=== PATIENT | female | born 1945 | race Caucasian/White ===

== ENCOUNTER 2018-06-25 16:08 | Inpatient (IN) | payer MEDICARE, OTHER ==
[~2018-06-25] VITALS: Ht 162.6 cm; Wt 61.4 kg
[~2018-06-25 16:08] MED LIST: AML5T GT; ASPI81CH43 PO; ATOR20TA PO; BIOF500T11 PO; CALC-437 OR; DYA375C PO; GLUC750T29 PO; IRONTAB35 OR; METO25TA4 PO; MULTLIQ36 OR; OMEG300C7 OR
[2018-06-25 18:05] LABS: Basophils # (auto) 0 uL; Basophils % (auto) 0.5 % (0.0-2.0); Eosinophils # (auto) 0 uL; Eosinophils % (auto) 0.7 % (0.0-7.0); Hematocrit 39.1 % (36.0-46.0); Hemoglobin 13.5 g/dL (12.2-16.2); Lymphocytes # (auto) 1.1 uL; Lymphocytes % (auto) 21.9 % (10.0-50.0); Mean Corpuscular Hemoglobin 32.2 pg (28.0-32.0); Mean Corpuscular Hgb Conc. 34.7 g/dL (32.0-36.0); Mean Corpuscular Volume 92.8 fL (80.0-100.0); Monocytes # (auto) 0.7 uL; Monocytes % (auto) 14.4 % (0.0-12.0); Neutrophils # (auto) 3.1 uL; Neutrophils % (auto) 62.5 % (37.0-80.0); Platelet Count (auto) 285 10^3/uL (140-450); Red Blood Cells 4.21 10^6/uL (4.0-5.20); Red Cell Distribution Width 13.3 % (11.8-14.3)
[2018-06-25 18:19] LABS: INR 0.94 (0.9-1.15); Partial Thromboplastin Time 28.2 sec (23.78-33.04); Prothrombin Time 10.1 sec (9.27-12.13)
[2018-06-25 18:23] LABS: Alanine Aminotransferase 29 U/L (13-56); Albumin 3.9 g/dL (3.4-5.0); Anion Gap 12 (5-15); Aspartate Aminotransferase 14 U/L (15-37); BUN/Creatinine Ratio 13.9; Blood Urea Nitrogen 11 mg/dL (7-18); Calcium 8.3 mg/dL (8.5-10.1); Carbon Dioxide 24 mmol/L (21-32); Chloride 99 mmol/L (98-107); GFR African American 91 mL/min; GFR Non-African American 76 mL/min; Glucose 83 mg/dL (74-106); Magnesium 1.9 mg/dL (1.6-2.6); Potassium 3.5 mmol/L (3.5-5.1); Sodium 135 mmol/L (136-145)
[2018-06-25 18:28] LABS: Alkaline Phosphatase 69 U/L (45-117); Bilirubin, Total 0.4 mg/dL (0.2-1.0); Total Protein 7.8 g/dL (6.4-8.2)
[2018-06-25] MEDS ORDERED: NITROGLYCERIN 0.4 MG SL TAB SL PRN (20:45)
[2018-06-25] MEDS ORDERED: ONDANSETRON HCL 4 MG/2 ML VIAL IV PRN (20:45)
[2018-06-25] MEDS ORDERED: ACETAMINOPHEN 325 MG TAB PO PRN (20:45)
[2018-06-25] MEDS ORDERED: HYDROcodone-ACET 5/325MG TAB PO PRN (20:45)
[2018-06-25] MEDS ORDERED: MORPHINE SULFATE 4 MG/ML SYR/VIAL IV PRN (20:45)
[2018-06-25] MEDS ORDERED: APIXABAN 5 MG TAB PO SCH (22:00)
[2018-06-25] MEDS ORDERED: PATIENTS OWN MEDICATION (eliquis 5 MG) PO SCH (22:00)
[2018-06-25] MEDS: APIXABAN 5 MG TAB PO SCH (22:10)
[2018-06-25] MEDS: FAMOTIDINE 20 MG TAB PO SCH (22:10)
[2018-06-26] MEDS: TEMAZEPAM 15 MG CAP PO PRN ×2 (01:47→21:44)
[2018-06-26 03:00] VITALS: BP 130/76
[2018-06-26 05:00] VITALS: BP 145/72
[2018-06-26 08:01] LABS: Basophils # (auto) 0 uL; Basophils % (auto) 0.7 % (0.0-2.0); Eosinophils # (auto) 0.1 uL; Eosinophils % (auto) 1.1 % (0.0-7.0); Hematocrit 38.2 % (36.0-46.0); Lymphocytes # (auto) 1.2 uL; Mean Corpuscular Hemoglobin 31.3 pg (28.0-32.0); Mean Corpuscular Hgb Conc. 33.9 g/dL (32.0-36.0); Mean Corpuscular Volume 92.2 fL (80.0-100.0); Monocytes # (auto) 0.7 uL; Neutrophils # (auto) 2.8 uL; Neutrophils % (auto) 59.2 % (37.0-80.0); Platelet Count (auto) 273 10^3/uL (140-450); Red Blood Cells 4.15 10^6/uL (4.0-5.20); Red Cell Distribution Width 13.4 % (11.8-14.3); White Blood Cell 4.7 10^3/uL (4.4-10.8)
[2018-06-26 08:22] VITALS: BP 137/86
[2018-06-26 08:27] LABS: Albumin 3.5 g/dL (3.4-5.0); Calcium 8.6 mg/dL (8.5-10.1); Potassium 3.4 mmol/L (3.5-5.1)
[2018-06-26 08:29] LABS: BUN/Creatinine Ratio 14.1; Bilirubin, Total 0.5 mg/dL (0.2-1.0); Total Protein 7.1 g/dL (6.4-8.2)
[2018-06-26] MEDS ORDERED: ASPirin 81 mg TAB PO SCH (10:00)
[2018-06-26] MEDS ORDERED: ENOXAPARIN SOD 40 MG/0.4 ML SYRINGE SC SCH (10:00)
[2018-06-26] MEDS ORDERED: ASPirin-EC 81 mg tab PO SCH (10:00)
[2018-06-26] MEDS: ATORVASTATIN 20 MG TAB PO SCH (10:30)
[2018-06-26] MEDS: TRIAMTERENE/HCTZ 37.5/25 MG CAP/TAB PO SCH (10:30)
[2018-06-26] MEDS: amLODIPine BESYLATE 5 MG TAB PO SCH (10:30)
[2018-06-26] MEDS: FAMOTIDINE 20 MG TAB PO SCH ×2 (10:30→21:45)
[2018-06-26] MEDS: APIXABAN 5 MG TAB PO SCH ×2 (10:30→21:45)
[2018-06-26] MEDS: METOPROLOL SUCCINATE XL 50 MG TAB PO SCH (10:30)
[2018-06-26 12:12] VITALS: BP 124/61
[2018-06-26] MEDS ORDERED: POTASSIUM EFFERVESENT TAB 25 MEQ PO ONE (13:15)
[2018-06-26 16:40] VITALS: BP 118/69
[2018-06-26] MEDS: buPROPion HCL 100 MG TAB PO SCH (19:28)
[2018-06-26 21:49] VITALS: BP 106/73
[2018-06-27] VITALS (7 sets, daily range): BP systolic 108–127; BP diastolic 51–65
[2018-06-27] MEDS: buPROPion HCL 100 MG TAB PO SCH ×2 (06:05→18:50)
[2018-06-27 06:32] LABS: Basophils # (auto) 0 uL; Basophils % (auto) 0.8 % (0.0-2.0); Eosinophils # (auto) 0.1 uL; Eosinophils % (auto) 1.3 % (0.0-7.0); Hematocrit 37.2 % (36.0-46.0); Hemoglobin 12.8 g/dL (12.2-16.2); Lymphocytes # (auto) 1.2 uL; Lymphocytes % (auto) 27.4 % (10.0-50.0); Mean Corpuscular Hgb Conc. 34.4 g/dL (32.0-36.0); Mean Corpuscular Volume 92.8 fL (80.0-100.0); Monocytes # (auto) 0.8 uL; Monocytes % (auto) 17.9 % (0.0-12.0); Neutrophils # (auto) 2.3 uL; Neutrophils % (auto) 52.6 % (37.0-80.0); Nucleated Red Blood Cells % 0.1 %; Platelet Count (auto) 263 10^3/uL (140-450); Red Blood Cells 4.01 10^6/uL (4.0-5.20); Red Cell Distribution Width 13.2 % (11.8-14.3); White Blood Cell 4.4 10^3/uL (4.4-10.8)
[2018-06-27 06:47] LABS: BUN/Creatinine Ratio 15.1; Calcium 8.6 mg/dL (8.5-10.1); Potassium 3.7 mmol/L (3.5-5.1)
[2018-06-27] MEDS: TRIAMTERENE/HCTZ 37.5/25 MG CAP/TAB PO SCH (09:32)
[2018-06-27] MEDS: APIXABAN 5 MG TAB PO SCH ×2 (09:32→21:35)
[2018-06-27] MEDS: FAMOTIDINE 20 MG TAB PO SCH ×2 (09:33→21:35)
[2018-06-27] MEDS: amLODIPine BESYLATE 5 MG TAB PO SCH (09:33)
[2018-06-27] MEDS: ATORVASTATIN 20 MG TAB PO SCH ×2 (09:33→10:00)
[2018-06-27] MEDS: METOPROLOL SUCCINATE XL 50 MG TAB PO SCH (09:35)
[2018-06-27] MEDS: TEMAZEPAM 15 MG CAP PO PRN (21:35)
[2018-06-28 05:00] VITALS: BP 112/53
[2018-06-28 06:25] LABS: Cholesterol 211 mg/dL (< 200); HDL Cholesterol 55 mg/dL (40-59); LDL Cholesterol 128 mg/dL (< 100); Triglycerides 145 mg/dL (< 150)
[2018-06-28] MEDS: buPROPion HCL 100 MG TAB PO SCH (07:03)
[2018-06-28 08:00] VITALS: BP 110/61
[2018-06-28 09:00] VITALS: BP 110/61
[2018-06-28] MEDS: amLODIPine BESYLATE 5 MG TAB PO SCH (09:17)
[2018-06-28] MEDS: APIXABAN 5 MG TAB PO SCH (09:17)
[2018-06-28] MEDS: METOPROLOL SUCCINATE XL 50 MG TAB PO SCH ×2 (09:18→09:23)
[2018-06-28] MEDS: TRIAMTERENE/HCTZ 37.5/25 MG CAP/TAB PO SCH (09:18)
[2018-06-28] MEDS: FAMOTIDINE 20 MG TAB PO SCH (09:19)
[2018-06-28] MEDS: ATORVASTATIN 20 MG TAB PO SCH (09:19)
[2018-06-28 10:42] VITALS: BP 110/61
== END 2018-06-28 11:38 | disposition home or self-care (01) | DRG 92 ==
LOC: ER 16:11 → TELE 16:12 → TELE-CENTR 06-26 02:44
PROVIDERS: ADMIT Nurse Practitioner; ATTEND Family Medicine
DX: R27.0 Ataxia, unspecified (principal); G72.0 Drug-induced myopathy; H53.2 Diplopia; E78.00 Pure hypercholesterolemia, unspecified; E78.5 Hyperlipidemia, unspecified; F17.200 Nicotine dependence, unspecified, uncomplicated; T46.6X5A Adverse effect of antihyperlipidemic and antiarteriosclerotic drugs, initial encounter; I48.2 Chronic atrial fibrillation; Z79.01 Long term (current) use of anticoagulants; I10 Essential (primary) hypertension; Z79.899 Other long term (current) drug therapy; Z82.49 Family history of ischemic heart disease and other diseases of the circulatory system; Z85.42 Personal history of malignant neoplasm of other parts of uterus; Z90.710 Acquired absence of both cervix and uterus; Z88.1 Allergy status to other antibiotic agents; Z88.0 Allergy status to penicillin
CPT/HCPCS: 36415; 70450; 70551; 80048; 80053; 80061; 83735; 84443; 84484; 85025; 85610; 85730; 93005; 93306; 93886